=== PATIENT | male | born 1965 ===

== ENCOUNTER 2019-06-27 08:17 | Observation (INO) | payer OTHER ==
[~2019-06-27] VITALS: Ht 172.7 cm; Wt 75.0 kg
[2019-06-27] VITALS (20 sets, daily range): BP systolic 113–136; BP diastolic 76–97
[~2019-06-27 08:17] MED LIST: GABA600T13 PO
[2019-06-27] MEDS ORDERED: cefazolin/dext.iso 2gm/100 ML IV ONE (09:00)
[2019-06-27] MEDS ORDERED: metoclopramide 5 mg/ml inj IV ONE (09:00)
[2019-06-27] MEDS ORDERED: vancomycin inj 1,500 MG in normal saline 300ml IV soln IV ONE (09:00)
[2019-06-27] MEDS ORDERED: acetaminophen 325mg tablet PO ONE (09:00)
[2019-06-27] MEDS ORDERED: oxyCODONE SR 10mg (sust. release) tab -2 tabs (20mg) PO ONE (09:00)
[2019-06-27] MEDS ORDERED: tranexamic acid inj. 1,000 MG in normal saline 100 ML IV ONE (09:00)
[2019-06-27] MEDS ORDERED: gabapentin 300mg capsule PO ONE ×3 (09:00→17:35)
[2019-06-27] MEDS ORDERED: famotidine 20mg tablet PO ONE (09:00)
[2019-06-27] MEDS ORDERED: ringers solution, lacted 1,000 ML IV SCH ×2 (09:00→14:10)
[2019-06-27] MEDS ORDERED: vancomycin 1,000mg inj ONE (12:11)
[2019-06-27] MEDS ORDERED: sevoflurane 250ml liquid IH ONE (12:30)
[2019-06-27] MEDS ORDERED: fentaNYL/PF 50MCG/1 ML 2ML syringe ONE ×2 (12:34→13:26)
[2019-06-27] MEDS ORDERED: MIDAZolam 5mg/5ml vial ONE (12:34)
[2019-06-27] MEDS ORDERED: dexamethasone sod phosphate 4mg/ml inj. ONE (13:25)
[2019-06-27] MEDS ORDERED: propofol inj 20 ML IV ONE (13:25)
[2019-06-27] MEDS ORDERED: ondansetron/PF 4mg/2ml inj ONE (13:25)
[2019-06-27] MEDS ORDERED: LIDOcaine 2% (20mg/ml) 5ml vial ONE (13:25)
[2019-06-27] MEDS ORDERED: ROPIVAcaine 0.5% (5mg/ml) 30ml vial ONE (13:26)
[2019-06-27] MEDS: ceFAZolin 1000mg inj ONE ×2 (13:52→13:53)
[2019-06-27] MEDS ORDERED: meperidine/PF 25mg/ml syringe IV PRN ×2 (14:10)
[2019-06-27] MEDS ORDERED: ondansetron/PF 4mg/2ml inj IV PRN ×2 (14:10→14:40)
[2019-06-27] MEDS ORDERED: ROPIVAcaine 0.2%/PF PAIN PUMP 550 ML IJ SCH (14:10)
[2019-06-27] MEDS ORDERED: morphine 4 MG/ML inj SYRINge IV PRN ×2 (14:10)
[2019-06-27] MEDS ORDERED: morphine 10mg/ml inj. ONE (14:39)
[2019-06-27] MEDS ORDERED: HYDROmorphone 1 mg/ml syringe IV PRN (14:40)
[2019-06-27] MEDS ORDERED: HYDROmorphone inj. 0.5 MG/0.5 ML DISP.SYRIN IV PRN (14:40)
[2019-06-27] MEDS ORDERED: acetaminophen 325mg tablet PO PRN (14:40)
[2019-06-27] MEDS ORDERED: bisacodyl 10mg suppository rectal RC PRN (14:40)
[2019-06-27] MEDS ORDERED: diphenhydrAMINE 25mg capsule PO PRN ×2 (14:40)
[2019-06-27] MEDS ORDERED: oxyCODONE IR 5mg (immed. release) tablet PO PRN (14:40)
[2019-06-27] MEDS ORDERED: magnesium hydroxide 30ml (MOM) UD suspension PO PRN (14:40)
--- NOTE | 2019-06-27 15:09 | NUR ---
Received from OR via BED, accompanied by Anesthesiologist DR BARTON and report given by Anesthesiologist. PT DROWSY, DENIES PAIN, RIGHT SHOULDER W/DRSG, ICE PACK, SHOULDER WRAP, CDI. PT STATES ARM/HAND IS NUMB, PULSES 2+. Addendum: 06/27/19 at 1621 by Katja Vazquez RN Amended: Links added.
--- NOTE | 2019-06-27 16:20 | NUR ---
REPORT RECEIVED FROM FRED
--- NOTE | 2019-06-27 16:39 | NUR ---
Report called to receiving nurse. Transferred via BED, NO Belongings, CORRECTIONAL OFFICERS PRESENT, RECEIVING RN AT BEDSIDE. Special Issues communicated to receiving nurse. YES. Addendum: 06/27/19 at 1721 by Katja Vazquez RN Amended: Links added.
--- NOTE | 2019-06-27 16:50 | NUR ---
PATIENT ARRIVED TO FLOOR INTO ROOM 4006, STABLE UPON ARRIVAL
[2019-06-27] MEDS: ceFAZolin 1GM/D5W- ADD-VANTAGE 50 ML IV SCH (17:16)
[2019-06-27] MEDS ORDERED: tranexamic acid inj. 750 MG in normal saline 100ml IV soln 100 ML IV ONE (17:40)
--- NOTE | 2019-06-27 18:33 | NUR ---
Problems reprioritized. Patient report given, questions answered & plan of care reviewed with Nory RDZ.
[2019-06-27] MEDS ORDERED: vancomycin/NS 1 GM ADD-VANTAGE 250 ML IV SCH (20:00)
[2019-06-27] MEDS: gabapentin 300mg capsule PO SCH (21:00)
[2019-06-27] MEDS ORDERED: sennosides 8.6mg tablet PO SCH (21:00)
[2019-06-27] MEDS: acetaminophen 325mg tablet PO SCH (21:01)
[2019-06-27] MEDS: potassium cl 20mEq in 1/2 NS 1,000 ML IV SCH ×2 (21:15→22:40)
[2019-06-27] MEDS: oxyCODONE IR 5mg (immed. release) tablet PO PRN (23:07)
[2019-06-28 00:35] VITALS: BP 113/84
[2019-06-28] MEDS: ceFAZolin 1GM/D5W- ADD-VANTAGE 50 ML IV SCH (00:59)
[2019-06-28 02:00] VITALS: BP 127/84
[2019-06-28] MEDS: acetaminophen 325mg tablet PO SCH ×2 (02:00→07:25)
[2019-06-28 04:35] VITALS: BP 127/83
[2019-06-28] MEDS ORDERED: gabapentin 300mg capsule PO SCH (05:00)
[2019-06-28] MEDS: potassium cl 20mEq in 1/2 NS 1,000 ML IV SCH (05:41)
[2019-06-28] MEDS: oxyCODONE IR 5mg (immed. release) tablet PO PRN ×2 (05:46→10:46)
[2019-06-28 06:00] VITALS: BP 127/90
[2019-06-28 06:17] LABS: BASOPHILS % (AUTO) 0.3 % (0-1); EOSINOPHILS % (AUTO) 0 % (0-6); HEMOGLOBIN 13.8 g/dl (14.0-17.9); LYMPHOCYTES # (AUTO) 1.2 X10'3 (1.1-4.8); LYMPHOCYTES % (AUTO) 8.1 % (21-51); MEAN CORPUSCULAR HEMOGLOBIN 28.7 PG (27.0-31.0); MEAN CORPUSCULAR HGB CONC 33.6 g/dL (33.0-36.5); MEAN CORPUSCULAR VOLUME 85.3 FL (78-98); MEAN PLATELET VOLUME 7.3 FL (7.4-10.4); MONOCYTES # (AUTO) 0.8 X10'3 (0-0.9); MONOCYTES % (AUTO) 5.5 % (2-12); NEUTROPHILS # (AUTO) 12.8 X10'3 (1.8-7.7); NEUTROPHILS % (AUTO) 86.1 % (42-75); PLATELET COUNT 274 X10'3 (140-440); RED BLOOD COUNT 4.81 X10'6 (4.70-6.10); RED CELL DISTRIBUTION WIDTH 13.4 % (11.5-14.5); WHITE BLOOD COUNT 14.9 X10'3 (4.5-11.0)
[2019-06-28 06:27] LABS: ANION GAP 8 (8-16); CHLORIDE 105 MMOL/L (99-107); POTASSIUM 4.4 MMOL/L (3.5-5.1); SODIUM 138 MMOL/L (135-145); TOTAL CARBON DIOXIDE 24.6 MMOL/L (24-32)
--- NOTE | 2019-06-28 07:06 | NUR ---
Patient in room ORTHO 4006. I have received report from Cristina RDZ and had the opportunity to ask questions and assume patient care.
[2019-06-28] MEDS ORDERED: HYDR-4353 PO (07:50)
[2019-06-28] MEDS ORDERED: ASPI-1 PO (07:50)
[2019-06-28] MEDS: gabapentin 300mg capsule PO SCH (08:21)
[2019-06-28] MEDS ORDERED: aspirin 325mg tablet PO SCH (08:30)
[2019-06-28 10:00] VITALS: BP 123/92
--- NOTE | 2019-06-28 11:09 | NUR ---
patient was discharged back to [facility] accompanied by two guards, discharge instructions went over with patient and guards and questions answered, information on On-Q ball given to guard and explained, patient stable for discharge
[2019-06-28] MEDS ORDERED: celeCOXIB 100mg capsule PO SCH (20:00)
[2019-06-29] MEDS ORDERED: acetaminophen 325mg tablet PO PRN (14:40)
== END 2019-06-28 11:15 ==
LOC: PAS IN 08:17 → INTOOBSV 08:17 → EDSTATUS 11:00 → EEVIPCON 11:00 → EDSTATUS 11:00 → ORTHO 4S 16:50
PROVIDERS: ADMIT Orthopaedic Surgery; ATTEND Orthopaedic Surgery
PROC: 0RRJ0JZ Replacement of Right Shoulder Joint with Synthetic Substitute, Open Approach (ICD-10-PCS; principal; 2019-06-27 12:30)
DX: M19.011 Primary osteoarthritis, right shoulder (principal); M25.511 Pain in right shoulder; D62 Acute posthemorrhagic anemia; Z86.19 Personal history of other infectious and parasitic diseases; Z87.891 Personal history of nicotine dependence; G40.89 Other seizures
CPT/HCPCS: 36415; 73020; 80051; 82948; 85025; 87081; 93005; 96365; 96366; 96367; 96368; 96375; 97110; 97161; A4215; A4565; A4618; A7000; C1713; C1776; G0378; J0690; J1100; J1170; J2001; J2250; J2270; J2405; J2704; J2765; J2795; J3010; J3370; J3480; J7030; J7120